=== PATIENT | female | born 1970 | race American Indian/Alaskan Native ===

== ENCOUNTER 2020-07-07 15:48 | Emergency (ER) | payer MEDICARE ==
--- NOTE | 2020-07-07 16:51 | Emergency Department Report ---
HPI - General Chief Complaint: Psych Time Seen by Provider: 07/07/20 16:19 - HPI HPI: Room 11 The patient is a 49-year-old female present with a chief complaint of suicidal and homicidal ideation. Patient has history bipolar disorder and states for the past 2 days she is felt suicidal. The patient states her plan was to overdose on a bunch of pills. Patient denies any active attempts at harming herself. Patient also admits to homicidal ideation towards the paramedics that restrained her ED Past Medical Hx - Past Medical History Previous Medical History?: Yes Hx Hypertension: Yes Hx Renal Disease: Yes (ESRD q Tues, Sat) Hx Psychiatric Treatment: Yes (Bipolar disorder) - Family History Family history: no significant - Social History Smoking Status: Former Smoker (None x1 year) Substance Use Type: Cocaine (History of cocaine use. No use x4 years) ED Review of Systems ROS: Stated complaint: SUICIDAL/HYPERTENSION Other details as noted in HPI Constitutional: no symptoms reported Respiratory: no symptoms reported Endocrine: no symptoms reported Psychiatric: homicidal thoughts, suicidal thoughts Physical Exam - Physical Exam Vital Signs: Vital Signs 07/07/20 07/07/20 15:57 16:28 Temperature 98 F 98.0 F Pulse Rate 94 H Respiratory 16 Rate Blood Pressure 206/108 [Right] O2 Sat by Pulse 96 Oximetry Physical Exam: GENERAL: The patient is well-developed well-nourished female lying on stretcher not appearing to be in acute distress. [] HEENT: Normocephalic. Atraumatic. Extraocular motions are intact. Patient has moist mucous membranes. NECK: Supple. Trachea midline CHEST/LUNGS: Clear to auscultation. There is no respiratory distress noted. HEART/CARDIOVASCULAR: Regular. There is no tachycardia. There is no gallop rub or murmur. ABDOMEN: Abdomen is soft, nontender. Patient has normal bowel sounds. There is no abdominal distention. SKIN: There is no rash. There is no edema. There is no diaphoresis. NEURO: The patient is awake, alert, and oriented. The patient is cooperative. The patient has normal speech MUSCULOSKELETAL: T There is no evidence of acute injury. ED Course Vital Signs 07/07/20 07/07/20 15:57 16:28 Temperature 98 F 98.0 F Pulse Rate 94 H Respiratory 16 Rate Blood Pressure 206/108 [Right] O2 Sat by Pulse 96 Oximetry ED Medical Decision Making - Lab Data Result diagrams: 07/07/20 16:45 07/07/20 16:45 Laboratory Tests 07/07/20 07/07/20 07/07/20 16:45 16:45 16:45 WBC 6.2 RBC 2.99 L Hgb 10.1 Hct 30.1 L MCV 101 H MCH 34 H MCHC 34 RDW 13.7 Plt Count 191 Lymph % (Auto) 32.8 Lea % (Auto) 7.9 H Eos % (Auto) 2.2 Baso % (Auto) 0.8 Lymph # (Auto) 2.0 Lea # (Auto) 0.5 Eos # (Auto) 0.1 Baso # (Auto) 0.0 Seg Neutrophils % 56.3 Seg Neutrophils # 3.5 Sodium 139 Potassium 4.8 Chloride 98.2 Carbon Dioxide 26 Anion Gap 20 BUN 79 H Creatinine 13.5 H Estimated GFR 4 BUN/Creatinine Ratio 6 Glucose 104 H Calcium 8.6 Urine Color Urine Turbidity Urine pH Ur Specific Rebecca Urine Protein Urine Glucose (UA) Urine Ketones Urine Blood Urine Nitrite Urine Bilirubin Urine Urobilinogen Ur Leukocyte Esterase Urine WBC (Auto) Urine RBC (Auto) U Epithel Cells (Auto) Salicylates < 0.3 L Urine Opiates Screen Urine Methadone Screen Acetaminophen Ur Barbiturates Screen Ur Phencyclidine Scrn Ur Amphetamines Screen U Benzodiazepines Scrn Urine Cocaine Screen U Marijuana (THC) Screen Plasma/Serum Alcohol 07/07/20 07/07/20 07/07/20 16:45 16:45 17:34 WBC RBC Hgb Hct MCV MCH MCHC RDW Plt Count Lymph % (Auto) Lea % (Auto) Eos % (Auto) Baso % (Auto) Lymph # (Auto) Lea # (Auto) Eos # (Auto) Baso # (Auto) Seg Neutrophils % Seg Neutrophils # Sodium Potassium Chloride Carbon Dioxide Anion Gap BUN Creatinine Estimated GFR BUN/Creatinine Ratio Glucose Calcium Urine Color Yellow Urine Turbidity Clear Urine pH 7.0 Ur Specific Rebecca 1.012 Urine Protein 100 mg/dl Urine Glucose (UA) Neg Urine Ketones Neg Urine Blood Neg Urine Nitrite Neg Urine Bilirubin Neg Urine Urobilinogen < 2.0 Ur Leukocyte Esterase Mod Urine WBC (Auto) 5.0 Urine RBC (Auto) 1.0 U Epithel Cells (Auto) 5.0 Salicylates Urine Opiates Screen Urine Methadone Screen Acetaminophen 5.0 L Ur Barbiturates Screen Ur Phencyclidine Scrn Ur Amphetamines Screen U Benzodiazepines Scrn Urine Cocaine Screen U Marijuana (THC) Screen Plasma/Serum Alcohol < 0.01 07/07/20 17:34 WBC RBC Hgb Hct MCV MCH MCHC RDW Plt Count Lymph % (Auto) Lea % (Auto) Eos % (Auto) Baso % (Auto) Lymph # (Auto) Lea # (Auto) Eos # (Auto) Baso # (Auto) Seg Neutrophils % Seg Neutrophils # Sodium Potassium Chloride Carbon Dioxide Anion Gap BUN Creatinine Estimated GFR BUN/Creatinine Ratio Glucose Calcium Urine Color Urine Turbidity Urine pH Ur Specific Rebecca Urine Protein Urine Glucose (UA) Urine Ketones Urine Blood Urine Nitrite Urine Bilirubin Urine Urobilinogen Ur Leukocyte Esterase Urine WBC (Auto) Urine RBC (Auto) U Epithel Cells (Auto) Salicylates Urine Opiates Screen Negative Urine Methadone Screen Negative Acetaminophen Ur Barbiturates Screen Negative Ur Phencyclidine Scrn Negative Ur Amphetamines Screen Negative U Benzodiazepines Scrn Negative Urine Cocaine Screen Negative U Marijuana (THC) Screen Negative Plasma/Serum Alcohol - Differential Diagnosis Suicidal ideation Critical care attestation.: If time is entered above; I have spent that time in minutes in the direct care of this critically ill patient, excluding procedure time. ED Disposition Clinical Impression: Suicidal ideation, Homicidal ideation Disposition: DC/TX-65 PSY HOSP/PSY UNIT Is pt being admited?: No Does the pt Need Aspirin: No Condition: Stable Time of Disposition: 18:16 (Awaiting placement)
[2020-07-07 17:21] LABS: Basophils % (Auto) 0.8 % (0.0-1.8); Eosinophils # (Auto) 0.1 K/mm3 (0.0-0.4); Eosinophils % (Auto) 2.2 % (0.0-4.3); Hematocrit 30.1 % (30.3-42.9); Hemoglobin 10.1 gm/dl (10.1-14.3); Lymphocytes % (Auto) 32.8 % (13.4-35.0); Mean Corpuscular HGB Conc 34 % (30-34); Mean Corpuscular Volume 101 fl (79-97); Monocytes # (Auto) 0.5 K/mm3 (0.0-0.8); Monocytes % (Auto) 7.9 % (0.0-7.3); Platelet Count 191 K/mm3 (140-440); Red Blood Count 2.99 M/mm3 (3.65-5.03); Red Cell Distribution Width 13.7 % (13.2-15.2)
[2020-07-07 17:27] LABS: Calcium 8.6 mg/dL (8.4-10.2)
[2020-07-07 18:10] LABS: Amphetamine Screen,Urine Negative; Benzodiazepines Screen,Urine Negative; Bilirubin,Urine NEG (Negative); Blood,Urine NEG (Negative); Cannabinoid Screen,Urine Negative; Cocaine Screen,Urine Negative; Color,Urine Yellow (Yellow); Methadone Screen,Urine Negative; Opiate Screen,Urine Negative; Urobilinogen,Urine < 2.0 mg/dL (<2.0)
[2020-07-07] MEDS ORDERED: cloNIDine 0.2 MG TAB PO ONE ×2 (19:39→19:42)
--- NOTE | 2020-07-08 10:45 | Consultation ---
History of Present Illness - Reason for Consult Consult date: 07/08/20 Reason for consult: SI - History of Present Psychiatric Illness The patient's medical record was reviewed and the patients progress was discussed with the nursing staff. The nurse caring for the patient states she has been calm and cooperative, and have denies any thoughts of SI/HI, A/V hallucinations. Marilou Carpenter is a 49y/o female patient who states she presented to the ER for suicidal thoughts. During my interview with the patient, she was sitting quietly. She is a/o x 3. She makes good eye contact. She is calm and cooperative. The patient says she came to the hospital because "I was depressed and thought I wanted to kill myself." She says "but I thought about it all night. I don't want to do that at all." She then says "I don't want to hurt nobody. God has been with me." She says "I feel a lot better. I don't have any of those thoughts." The patient denies hallucinations of any kind. She also denies any psych meds. She says "I once was on them but it's been awhile. I stopped taking them long ago." The patient says she has a history of "bipolar." She says she uses "crack cocaine." She says "I know what it is. I gotta stop doing that." PAST PSYCHIATRIC HISTORY: Diagnoses: Bipolar Suicide attempts or Self-harm behavior: Twice Prior psychiatric hospitalizations: Twice Substance Abuse history: crack cocaine Previous psychiatric medications tried: Outpatient treatment: Denies PAST MEDICAL HISTORY: None reported Family Psychiatric History: None reported or documented SOCIAL HISTORY Marital Status: Single Living Arrangements: alone Employment Status: Unemployed Access to guns/weapons: None reported Education: high school History of Abuse: Denies Legal History: Denies REVIEW OF SYSTEMS Constitutional: Negative for weight loss ENT: Negative for stridor Respiratory: Negative for cough or hemoptysis All other systems reviewed and are negative MENTAL STATUS EXAMINATION General Appearance and Behavior: Age appropriate, good hygiene, wearing appropriate clothes, good eye contact Cooperation: Participating/engaged Psychomotor Behavior: Psychomotor normal Mood: much better Affect and affective range: irritable, labile Thought Process: goal directed Thought Content: denies hallucinations, or negative thoughts Speech: Normal rate and tone Intellectual Functioning: Average Suicidal Ideation: SI Homicidal Ideation: Denies HI Hallucinations: Denies Delusions: None elicited Insight and Judgment: Limited insight and judgment, Impaired Memory: Normal Orientation: Alert, oriented Assessment and Plan (1)Bipolar Disorder (2) Cocaine Use Disorder (3) Substance Induced Mood Disorder Current Visit: Yes Status: Acute RECOMMENDATIONS MEDICATIONS: D/c 1013 Script: Zoloft 25mg po daily Risks, benefits and alternatives of medications discussed with the patient, questions answered and consent obtained from patient. PSYCHOTHERAPY: Supportive psychotherapy provided MEDICAL: Per primary team DELIRIUM PRECAUTIONS: Please re-orient patient frequently, keep lights on during the day, and minimize benzodiazepines and opiates as these medications could worsen patient's confusion. FIELD PIPELINES SUPERVISOR: Defer to primary DISPOSITION: Do not recommend acute inpatient psychiatric treatment at this [facility]. The patient understands that if thoughts of self harm or fear of endangerment are to arise she is to seek immediate assistance including the crisis hotline, 911/ER. The patient is to abstain from all illicit drug use. The in store representative is to further discuss the safety plan. The in store representative is to give the patient resources for outpatient psychiatry, cognitive behavioral therapy and drug rehabilitation programs. The patent is to follow up with outpatient psych, and primary in 7 to 14 days upon discharge. Will sign off. Thank you for the consult. Please contact with any questions and/or concerns. Medications and Allergies Allergies Allergy/AdvReac Type Severity Reaction Status Date / Time No Known Allergies Allergy Unverified 07/07/20 16:28 Home Medications Medication Instructions Recorded Confirmed Last Taken Type Sertraline [Zoloft] 25 mg PO QDAY #30 tab 07/08/20 Unknown Rx Mental Status Exam - Vital signs Last Vital Signs Temp 97.6 F 07/08/20 08:56 Pulse 81 07/08/20 08:56 Resp 18 07/08/20 08:56 BP 185/104 07/08/20 08:56 Pulse Ox 100 07/08/20 08:56 Results Result Diagrams: 07/07/20 16:45 07/07/20 16:45 Abnormal lab results 07/07/20 07/07/20 07/07/20 Range/Units 16:45 16:45 16:45 RBC 2.99 L (3.65-5.03) M/mm3 Hct 30.1 L (30.3-42.9) % MCV 101 H (79-97) fl MCH 34 H (28-32) pg [place] % (Auto) 7.9 H (0.0-7.3) % BUN 79 H (7-17) mg/dL Creatinine 13.5 H (0.6-1.2) mg/dL Glucose 104 H (65-100) mg/dL Salicylates < 0.3 L (2.8-20.0) mg/dL Acetaminophen (10.0-30.0) ug/mL 07/07/20 Range/Units 16:45 RBC (3.65-5.03) M/mm3 Hct (30.3-42.9) % MCV (79-97) fl MCH (28-32) pg [place] % (Auto) (0.0-7.3) % BUN (7-17) mg/dL Creatinine (0.6-1.2) mg/dL Glucose (65-100) mg/dL Salicylates (2.8-20.0) mg/dL Acetaminophen 5.0 L (10.0-30.0) ug/mL All other labs normal.
[2020-07-08 12:46] VITALS: BP 156/82
== END 2020-07-08 12:59 | disposition home or self-care (01) ==
LOC: ED 15:48 → EEVIPCON 15:48 → ED 07-08 12:59
DX: R45.851 Suicidal ideations (principal); R45.850 Homicidal ideations; I10 Essential (primary) hypertension; F14.10 Cocaine abuse, uncomplicated; Z87.891 Personal history of nicotine dependence
CPT/HCPCS: 36415; 80048; 80307; 80320; 81001; 85025; G0480

== ENCOUNTER 2020-07-13 11:39 | Emergency (ER) | payer MEDICARE ==
[2020-07-13 12:26] VITALS: BP 129/76
--- NOTE | 2020-07-13 13:58 | Event Note ---
ED Screening Note Date of service: 07/13/20 Time: 13:54 ED Screening Note: 49 yr old htn, bipolar, ESRD on dialysis presents for medical clearannce to return to dialysis tomorrow states needs labs last dialyzed saturday no other sx This initial assessment/diagnostic orders/clinical plan/treatment(s) is/are subject to change based on patients health status, clinical progression and re- assessment by fellow clinical providers in the ED. Further treatment and workup at subsequent clinical providers discretion. Patient/guardian urged not to elope from the ED as their condition may be serious if not clinically assessed and managed. Initial orders include: labs
[2020-07-13 15:01] LABS: Albumin 4.2 g/dL (3.9-5); Calcium 8.7 mg/dL (8.4-10.2)
[2020-07-13 15:13] LABS: Basophils # (Auto) 0.1 K/mm3 (0.0-0.1); Eosinophils # (Auto) 0.1 K/mm3 (0.0-0.4); Hematocrit 29.5 % (30.3-42.9); Hemoglobin 10.3 gm/dl (10.1-14.3); Lymphocytes # (Auto) 2.1 K/mm3 (1.2-5.4); Lymphocytes % (Auto) 31.7 % (13.4-35.0); Mean Corpuscular HGB Conc 35 % (30-34); Mean Corpuscular Volume 100 fl (79-97); Monocytes # (Auto) 0.3 K/mm3 (0.0-0.8); Monocytes % (Auto) 4.8 % (0.0-7.3); Platelet Count 259 K/mm3 (140-440); Red Blood Count 2.95 M/mm3 (3.65-5.03); Red Cell Distribution Width 13.5 % (13.2-15.2)
--- NOTE | 2020-07-13 16:35 | Emergency Department Report ---
Chief Complaint: Recheck/Abnormal Lab/Rx Stated Complaint: BLOOD WORK Time Seen by Provider: 07/13/20 16:30 - HPI History of Present Illness: This is a 49-year-old female with a history of hypertension, bipolar, end-stage renal disease on dialysis. Patient states that she was seen at dialysis on Saturday and her blood pressure was elevated so she was told to follow-up with the ER since patient missed her dialysis on Saturday. Patient states she was told to be medically cleared prior to returning. Patient denies any symptoms. She denies fever/chills/chest pain/shortness of breath/abdominal pain or any other symptoms. Patient states she is simply here to get some lab work so she can return to dialysis. - ROS Review of Systems: as npted in HPI - Exam Vital Signs: Vital Signs 07/13/20 07/13/20 12:25 12:29 Temperature 97.7 F 97.7 F Pulse Rate 82 82 Respiratory 18 18 Rate Blood Pressure 129/76 129/76 [Right] O2 Sat by Pulse 100 100 Oximetry Physical Exam: GENERAL: Alert and oriented x3, no apparent distress, Normal Gait, atraumatic. HEAD: Head is normocephalic and a-traumatic. ABDOMEN: No organomegaly was noted,Positive bowel sounds, soft, and non- distended. . Nontender to palpation on all Quadrants, NO CVA tenderness. SKIN: Warm and dry, No lesions, No ulceration or induration present. MSE screening note: Focused history and physical exam performed. Due to findings the following was ordered: ED Medical Decision Making - Lab Data Result diagrams: 07/13/20 14:34 07/13/20 14:34 - Medical Decision Making 49-year-old female who presents with for medical clearance to be dialyzed tomorrow. Labs are within normal limits. 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 Patient was in no acute distress she understands instructions. Results was given to patient to take to dialysis with her. Vital signs are normal she is in no acute distress. ED Disposition for MSE Clinical Impression: Well adult health check, ESRD (end stage renal disease) on dialysis Disposition: TO HOME OR SELFCARE Is pt being admited?: No Does the pt Need Aspirin: No Condition: Stable Instructions: Chronic Kidney Disease (ED) Additional Instructions: follow up with [facility] tomorrow for dialysis Your labs are normal and you can continue your care at [facility] Referrals: JEMAL LOO MD [Primary Care Provider] - 3-5 Days Time of Disposition: 16:34
== END 2020-07-13 16:37 | disposition home or self-care (01) ==
LOC: ED 11:39
DX: I12.0 Hypertensive chronic kidney disease with stage 5 chronic kidney disease or end stage renal disease (principal); N18.6 End stage renal disease; Z99.2 Dependence on renal dialysis; F31.9 Bipolar disorder, unspecified; Z00.00 Encounter for general adult medical examination without abnormal findings
CPT/HCPCS: 36415; 80053; 85025

== ENCOUNTER 2020-08-25 12:59 | Emergency (ER) | payer MEDICARE ==
--- NOTE | 2020-08-25 14:00 | Event Note ---
ED Screening Note ED Screening Note: states she is having diarrhea that began two days ago no n/v +urinary frequency no abd pain no CP no SOB no PLASCENCIA no vision changes no numbness no weakness PMHx HTN, DM, ESRD on dialysis, bipolar states she last went to diaysis 5 days ago did not go to dialysis on saturday no sick contacts no recent travel no recent abx states she took her BP medication this morning, states she took amlodipine and metoprorol and hctz BP is 249/133 This initial assessment/diagnostic orders/clinical plan/treatment(s) is/are subject to change based on patients health status, clinical progression and re- assessment by fellow clinical providers in the ED. Further treatment and workup at subsequent clinical providers discretion. Patient/guardian urged not to elope from the ED as their condition may be serious if not clinically assessed and managed. Initial orders include: labs, XR, EKG
[2020-08-25] MEDS ORDERED: hydrALAZINE 100 MG TAB PO ONE (14:04)
--- NOTE | 2020-08-25 15:15 | XRay Report ---
ABDOMEN 3 VIEW(S) INDICATION / CLINICAL INFORMATION: diarrhea, dialysis pt, HTN urgency. COMPARISON: None available. FINDINGS: TUBES / LINES: None. BOWEL GAS PATTERN: No dilated loops of large or small bowel. Moderate amount of fecal material in the rectal vault. FREE AIR / EXTRALUMINAL GAS: None seen. ADDITIONAL FINDINGS: No significant additional findings. CHEST: Heart is mildly enlarged. No acute pulmonary or pleural findings. IMPRESSION: 1. No bowel obstruction or free air. Signer Name: Schuyler Quezada MD Signed: 08/25/2020 3:10 PM Workstation Name: [id number]
[2020-08-25 15:33] LABS: Basophils # (Auto) 0.1 K/mm3 (0.0-0.1); Basophils % (Auto) 1.1 % (0.0-1.8); Eosinophils # (Auto) 0.2 K/mm3 (0.0-0.4); Eosinophils % (Auto) 2.8 % (0.0-4.3); Hematocrit 24.8 % (30.3-42.9); Hemoglobin 8.7 gm/dl (10.1-14.3); Lymphocytes # (Auto) 2.4 K/mm3 (1.2-5.4); Lymphocytes % (Auto) 36.3 % (13.4-35.0); Mean Corpuscular HGB Conc 35 % (30-34); Mean Corpuscular Volume 101 fl (79-97); Monocytes # (Auto) 0.5 K/mm3 (0.0-0.8); Monocytes % (Auto) 7.1 % (0.0-7.3); Platelet Count 228 K/mm3 (140-440); Red Blood Count 2.45 M/mm3 (3.65-5.03)
[2020-08-25 16:12] LABS: Albumin 4.6 g/dL (3.9-5); Calcium 9.3 mg/dL (8.4-10.2)
[2020-08-25 16:24] LABS: Chol/HDL Ratio 2.59 %
[2020-08-25 17:53] VITALS: BP 209/116
--- NOTE | 2020-08-25 18:18 | Emergency Department Report ---
ED N/V/D HPI - General Chief complaint: Nausea/Vomiting/Diarrhea Stated complaint: WEAKNESS PUI?: No Time Seen by Provider: 08/25/20 13:56 Source: patient Mode of arrival: Ambulatory Limitations: No Limitations - History of Present Illness Initial comments: CC: "diarrhea and urinating" HPI: This is a 49 yo female with hx of DM, ESRD on HD, HTN who presents with diarrhea for 2 days. Urinating more frequently. She is concerned that her blood pressure is elevated. She did not go to dialysis on Saturday. Her last HD session was on . She desires home hemodialysis in lieu of going to the center. complaint: diarrhea, other (frequent urination elevated blood pressure) -: Gradual, days(s) (2) Description of Vomiting: other (none) Description of Diarrhea: water Associated Abdominal Pain: No Severity: mild Pain Scale: 0 Consistency: constant Improves with: none Worsens with: none Context: other (unknown) Associated Symptoms: denies other symptoms - Related Data Previous Rx's Medication Instructions Recorded Last Taken Type Sertraline [Zoloft] 25 mg PO QDAY #30 tab 07/08/20 Unknown Rx Diphenoxylate/Atropine [Lomotil] 2 tab PO TID 2 Days #12 tablet 08/25/20 Unknown Rx Allergies Allergy/AdvReac Type Severity Reaction Status Date / Time No Known Allergies Allergy Verified 08/25/20 15:41 ED Review of Systems ROS: Stated complaint: WEAKNESS Other details as noted in HPI Comment: All other systems reviewed and negative Constitutional: denies: fever, malaise Respiratory: denies: cough, shortness of breath Cardiovascular: denies: chest pain Genitourinary: frequency, discharge ED Past Medical Hx - Past Medical History Previous Medical History?: Yes Hx Hypertension: Yes Hx Renal Disease: Yes (ESRD q Sat) Hx Psychiatric Treatment: Yes (Bipolar disorder) - Surgical History Past Surgical History?: Yes - Social History Smoking Status: Never Smoker Substance Use Type: None - Medications Home Medications: Home Medications Medication Instructions Recorded Confirmed Last Taken Type Sertraline [Zoloft] 25 mg PO QDAY #30 tab 07/08/20 Unknown Rx Diphenoxylate/Atropine [Lomotil] 2 tab PO TID 2 Days #12 tablet 08/25/20 Unknown Rx ED Physical Exam - General Limitations: No Limitations General appearance: alert, in no apparent distress, other (appears well) - Head Head exam: Present: atraumatic, normocephalic - Eye Eye exam: Present: normal appearance - ENT ENT exam: Present: mucous membranes moist - Neck Neck exam: Present: normal inspection, full ROM - Respiratory Respiratory exam: Present: normal lung sounds bilaterally. Absent: respiratory distress, rales, rhonchi, stridor - Cardiovascular Cardiovascular Exam: Present: regular rate, normal rhythm, normal heart sounds. Absent: systolic murmur, diastolic murmur, rubs, gallop - GI/Abdominal GI/Abdominal exam: Present: soft, normal bowel sounds. Absent: distended, tenderness, guarding, rebound - Extremities Exam Extremities exam: Present: normal inspection - Neurological Exam Neurological exam: Present: alert, oriented X3 - Psychiatric Psychiatric exam: Present: normal affect, normal mood - Skin Skin exam: Present: warm, dry, intact, normal color. Absent: rash ED Course Vital Signs 08/25/20 08/25/20 08/25/20 13:48 15:35 15:37 Temperature 97.8 F Pulse Rate 116 H 84 Respiratory 17 20 Rate Blood Pressure 259/143 Blood Pressure 213/119 [Left] O2 Sat by Pulse 100 100 99 Oximetry 08/25/20 08/25/20 08/25/20 15:54 16:17 16:30 Temperature Pulse Rate 84 Respiratory Rate Blood Pressure Blood Pressure 248/133 [Left] O2 Sat by Pulse 83 L 89 98 Oximetry 08/25/20 08/25/20 08/25/20 16:36 16:51 16:55 Temperature Pulse Rate 86 Respiratory Rate Blood Pressure Blood Pressure 216/126 [Left] O2 Sat by Pulse 86 92 98 Oximetry 08/25/20 17:52 Temperature Pulse Rate 74 Respiratory Rate Blood Pressure Blood Pressure 209/116 [Left] O2 Sat by Pulse 99 Oximetry ED Medical Decision Making - Lab Data Result diagrams: 08/25/20 15:02 08/25/20 15:02 Laboratory Results - last 24 hr 08/25/20 08/25/20 15:02 15:02 WBC 6.7 RBC 2.45 L Hgb 8.7 L Hct 24.8 L MCV 101 H MCH 36 H MCHC 35 H RDW 13.0 L Plt Count 228 Lymph % (Auto) 36.3 H [place] % (Auto) 7.1 Eos % (Auto) 2.8 Baso % (Auto) 1.1 Lymph # (Auto) 2.4 [place] # (Auto) 0.5 Eos # (Auto) 0.2 Baso # (Auto) 0.1 Seg Neutrophils % 52.7 Seg Neutrophils # 3.6 Sodium 146 H Potassium 4.5 Chloride 108.1 H Carbon Dioxide 19 L Anion Gap 23 BUN 89 H Creatinine 16.1 H Estimated GFR 3 BUN/Creatinine Ratio 6 Glucose 77 Calcium 9.3 Total Bilirubin 0.30 AST 11 ALT 7 Alkaline Phosphatase 56 Troponin T 0.088 H Total Protein 8.2 Albumin 4.6 Albumin/Globulin Ratio 1.3 Triglycerides 85 Cholesterol 166 LDL Cholesterol Direct 112 HDL Cholesterol 64 H Cholesterol/HDL Ratio 2.59 Lipase 32 - Medical Decision Making 1. diarrhea: no indication of dehydration, does not appear to be frequent, no stools in 5 hours. No toxicity to indicate C diff infection: lomotil prescription provided 2. frequent urination: patient was unable to provide UA, she desired discharge without UA investigation, she denies dysuria or discomfort, no hyperglycemia 3. ESRD on HD: normal potassium no respiratory distress no need for urgeny hemodialysis she was given a secondary nephrology referral if she plans to relocate from [place] 4. hypertensive urgency likely due to missed HD sessions no evidence of endorgan damage Critical care attestation.: If time is entered above; I have spent that time in minutes in the direct care of this critically ill patient, excluding procedure time. ED Disposition Clinical Impression: Hypertensive urgency, ESRD on hemodialysis, Diarrhea, Frequent urination Disposition: DC- TO HOME OR SELFCARE Is pt being admited?: No Does the pt Need Aspirin: No Condition: Stable Instructions: Diarrhea, Adult Prescriptions: Diphenoxylate/Atropine [Lomotil] 2 tab PO TID 2 Days #12 tablet Referrals: TRISH GUERRA MD [Staff Physician] - 3-5 Days
== END 2020-08-25 18:29 | disposition home or self-care (01) ==
LOC: ED 12:59
DX: I12.0 Hypertensive chronic kidney disease with stage 5 chronic kidney disease or end stage renal disease (principal); N18.6 End stage renal disease; R19.7 Diarrhea, unspecified; R35.0 Frequency of micturition; F31.9 Bipolar disorder, unspecified; Z99.2 Dependence on renal dialysis; Z79.899 Other long term (current) drug therapy
CPT/HCPCS: 36415; 74022; 80053; 80061; 83690; 84484; 85025; 93005; 96374